=== PATIENT | male | born 1990 | race Caucasian/White ===

== ENCOUNTER → 2021-05-06 09:18 | Outpatient (BNVA) | payer BC, SELFPAY | PROVIDERS: PCP Nurse Practitioner Family; Visit Provider Physician Assistant ==

== ENCOUNTER 2021-05-21 07:51 | Outpatient (REF) | payer BC, SELFPAY ==
[2021-05-21 11:16] LABS: MANUAL DIFF FLAG NO
[2021-05-21 11:39] LABS: Basophils Percent Auto 0.3 % (0-2); Eosinophils Absolute Auto 0.5 X10*3/uL (0.0-0.4); Eosinophils Percent Auto 8.6 % (0-4); Hematocrit 45.8 % (42-52); Hemoglobin 15.8 g/dl (14.0-18.0); Imm Gran Abs Auto 0.01 X10*3/uL (0.00-0.03); Imm Gran Pct Auto 0.2 % (0.0-0.4); Lymphocytes Absolute Auto 2.4 X10*3/uL (1.2-4.9); Lymphocytes Percent Auto 39.8 % (20-40); Mean Corpuscular HGB Conc 34.5 g/dl (31.0-36.0); Mean Corpuscular Hemoglobin 31.5 pg (27.0-33.0); Mean Corpuscular Volume 91.4 fL (80-98); Mean Platelet Volume 8.9 fL (9.4-12.4); Monocytes Absolute Auto 0.6 X10*3/uL (0.1-1.2); Monocytes Percent Auto 9.5 % (2-11); Neutrophils Absolute Auto 2.5 X10*3/uL (2.0-8.3); Neutrophils Percent Auto 41.6 % (45-73); Platelet Count 299 X10*3/uL (160-400); Red Blood Count 5.01 X10*6/uL (4.60-5.80); White Blood Count 6.1 X10*3/uL (4.8-10.8)
[2021-05-21 11:53] LABS: Alanine Aminotransferase 20 U/L (0-40); Albumin Level 4.7 g/dL (3.5-5.0); Alkaline Phosphatase 70 U/L (39-117); Anion Gap 13 (12-20); Aspartate Amino Transferase 20 U/L (5-37); Blood Urea Nitrogen 17 mg/dL (9-16); Calcium 9.5 mg/dL (8.4-10.2); Carbon Dioxide 26 mmol/L (22-29); Chloride 103 mmol/L (96-108); Estimated Glomerular Filt Rate > 60; Glucose Random 73 mg/dL (60-115); Potassium 3.9 mmol/L (3.3-5.1); Sodium 138 mmol/L (135-145); Total Protein 7.5 g/dL (6.5-8.0)
== END 2021-05-21 07:52 | disposition home or self-care (01) ==
LOC: HO.HMGCLDS 07:51
PROVIDERS: PCP Nurse Practitioner Family; Visit Provider Physician Assistant
DX: R10.11 Right upper quadrant pain (principal); R74.01 Elevation of levels of liver transaminase levels
CPT/HCPCS: 36415; 80053; 85025

== ENCOUNTER 2021-06-04 07:28 | Day surgery (SDC) | payer BC, SELFPAY ==
[2021-05-28 13:24] VITALS: BMI 27.8
--- NOTE | 2021-06-03 10:09 | P.CONAN_ITS ---
Documented by User: Nathalie Auguste 06/03/21 10:10 HPI - Anesthesia Eval Consult details Narrative: 31yo M for Upper Endoscopy PMFSH Active Problems Active Problems: All Active Problems (Updated 05/28/21 @ 13:33 by Vicky Cintron) Acid reflux (Acute) Esophageal stricture (Acute) Past Medical History Medical History (Updated 05/28/21 @ 13:33 by Vicky Cintron) COVID-19 vaccine administered Esophageal stricture Foot fracture, right GERD (gastroesophageal reflux disease) History of snoring Hx of migraine headaches Minimal depression Family History Family History Maternal Grandfather Throat cancer Diabetes Paternal Grandmother Hypertension Surgical History Surgical History (Updated 05/28/21 @ 13:32 by Vicky Cintron) History of esophagogastroduodenoscopy (EGD) Hx of wisdom tooth extraction Social History Social History (Updated 05/06/21 @ 09:40 by Grace Cervantes PA-C) Household Members: Spouse and Children Household Members Other:: , 1 child- Are you a primary customer care voice consultant to a significant other at home: No Do you presently have visiting nurse or other home services: No Alcohol intake: current Alcohol intake frequency: does not drink Patient Tobacco Use Status: Never used Tobacco Use of substances other than those prescribed or required for medical reasons: No Have you been hit, kicked, punched, or otherwise hurt by someone within the past year? 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 Allergy/AdvReac Type Severity Reaction Status Date / Time No Known Allergies Allergy Verified 10/01/20 14:04 Home Medications Medication Instructions Recorded Confirmed Last Taken Type loratadine 10 mg PO DAILY PRN 05/28/21 05/28/21 Unknown History Exam Exam Date and Time: June 03, 2021 1009 Height,Weight and Vital Signs: Height 6 ft Weight 92.986 kg Pertinent Lab Results Pertinent Lab Results: Laboratory Tests 05/21/21 05/21/21 07:56 07:56 WBC 6.1 Hgb 15.8 Hct 45.8 Plt Count 299 Sodium 138 Potassium 3.9 Chloride 103 Carbon Dioxide 26 BUN 17 H Creatinine 0.93 Assessment and Plan Assessment Anesthesia Assessment: Chart Reviewed Documented by User: Marylou Oliver 06/04/21 07:56 [facility] Past Medical History Medical History (Updated 05/28/21 @ 13:33 by Vicky Cintron) COVID-19 vaccine administered Esophageal stricture Foot fracture, right GERD (gastroesophageal reflux disease) History of snoring Hx of migraine headaches Minimal depression Family History Family History Maternal Grandfather Throat cancer Diabetes Paternal Grandmother Hypertension Surgical History Surgical History (Updated 05/28/21 @ 13:32 by Vicky Cintron) History of esophagogastroduodenoscopy (EGD) Hx of wisdom tooth extraction Social History Social History (Updated 05/06/21 @ 09:40 by Grace Cervantes PA-C) Household Members: Spouse and Children Household Members Other:: , 1 child- Are you a primary customer care voice consultant to a significant other at home: No Do you presently have visiting nurse or other home services: No Alcohol intake: current Alcohol intake frequency: does not drink Patient Tobacco Use Status: Never used Tobacco Use of substances other than those prescribed or required for medical reasons: No Have you been hit, kicked, punched, or otherwise hurt by someone within the past year? 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 Allergy/AdvReac Type Severity Reaction Status Date / Time No Known Allergies Allergy Verified 10/01/20 14:04 Home Medications Medication Instructions Recorded Confirmed Last Taken Type loratadine 10 mg PO DAILY PRN 05/28/21 05/28/21 Unknown History Exam Airway Mallampati Class: II TM Dist: >3cm Neck ROM: Full Heart: rrr Lungs: cta Assessment and Plan Assessment Anesthesia Assessment: Anesthesia Plan Discussed Final Anesthetic Review NPO: Yes ASA Class: II Final Preanesthetic Review: No Changes in Pt Med Stat and Consent Obtaine d/Reviewed Patient Risk: Intermediate Procedure Risk: Intermediate Anesthetic Plan Anesthetic Plan: MAC: Disposition: Standard PACU
--- NOTE | 2021-06-04 07:38 | P.HPSUR_ITS ---
Pre-Procedural Eval Section A Date of Service: 06/04/21 Section B Chief Complaint: esophageal stricture Relevant Social History: None Present Medications: see Short Stay Collaborative assessment Medical History: Significant History (Esophageal stricture Foot fracture, right GERD (gastroesophageal reflux disease) History of snoring Hx of migraine headaches Minimal depression) History of Previous Operations: Relevant previous surgery/procedure and date(s) Allergies: Allergies Allergy/AdvReac Type Severity Reaction Status Date / Time No Known Allergies Allergy Verified 10/01/20 14:04 Review of Systems Sugical H&P ROS: Negative: Constitution, Cardiovascular, Respiratory, Neurological, Psychiatric, Hem-Onc, Allergic/Immunologic, Gastrointestinal, Genitourinary, Musculoskeletal, Integumentary, Endocrine and Eyes/Ears/Nose/Throat Exam Surgical H&P Exam: Normal: HEENT, Normal: Heart, Normal: Lungs, Normal: Ext remities, Normal: Abdomen, Normal: Skin and Normal: Neurological Plan Diagnosis/Plan: Unchanged I have reviewed the history and physical and performed a pertinent physical examination on my patient. No changes have occurred unless specified.
[2021-06-04 07:49] VITALS: BP 126/84; PULSE 71; RESP 18; TEMP 36.7; O2SAT 98
[2021-06-04] MEDS: Lactated Ringers 1,000 ML 100 ML IVCONT (08:08)
--- NOTE | 2021-06-04 08:09 | PC.NURSE ---
PATIENT HAD VASO REACTION TO IV START. BP DROPPED TO 74/41, HR 50. PATIENT LAID FLAT AND COOL CLOTH GIVEN. IVF'S WIDE OPEN. BP UP TO 87/48, HR 50 AT 0808 BP UP TO 92/59, HR 52 AT 0809 BP UP TO 108/70, HR 58 AT 0811. BP UP TO 110/78, HR 63 AT 0814. ANESTHESIOLOGIST NOTIFIED AND EVALUALTED PATIENT. PATIENT STATES FEELING BETTER AT THIS TIME. VSS.
--- NOTE | 2021-06-04 08:56 | PM.OP ---
Brief Operative Note Date of Service: 06/04/21 Pre-op diagnosis: dysphagia Post-op diagnosis: same Procedure: see op note Surgeon: Nadia Murray MD Anesthesia: MAC Was an Basket Hand Braider used for this Procedure?: No Estimated blood loss (mL): 0 Condition: stable Disposition: PACU
--- NOTE | 2021-06-04 08:57 | W.PM.OPN ---
Operative Note Operative Note Date of Service: 06/04/21 Narrative: Procedure Description: EGD FLEXIBLE TRANSORAL UPPER GASTROINTESTINAL ENDOSCOPY UPPER ENDOSCOPY Consent: Indications for the procedure and potential complications of bleeding, perforation, reaction to medications and missed diagnosis were discussed with the patient and informed consent was obtained. Instrument: Olympus GIF H 190 J mid size upper endoscope Monitoring: Vital signs and clinical assessment, continuous EKG monitoring, Pulse oximetry, Carbon Dioxide monitoring and blood pressure monitoring were done throughout the procedure. Procedure: The patient was placed in the left lateral decubitis position and pre-procedure medications were administered and a bite block was placed. The endoscope was inserted into the mouth and advanced under direct vision to the third part of duodenum. A careful inspection was made as the upper endoscope was withdrawn including a retroflexed examination of the proximal stomach; Findings and interventions are described below. Findings: Larynx:normal Esophagus: GE junction at 40 cm, diaphragm hiatus at 40 cm, concentric ringing of esophagus with ridges suggestive of EoE, 18 mm then 19 mm balloon dilation at LES and UES with small tears noted at LES with heme. Bx taken from distal and then proximal esophagus in different jars Stomach: Patchy gastric erythema. Biopsies were obtained. Grade 2 flap valve on retroflexed examination of the cardia. Duodenum: Normal bulb and descending duodenum, bx taken Intervention: Biopsies as noted above, balloon dilation Impression/Findings: esophageal stricture, possible EoE PLAN: cont with PPI If any discomfort pos top can send home with magic mouthwash, will give a dose in post op before going home
[2021-06-04 09:03] VITALS: BP 99/66; PULSE 63; RESP 12; TEMP 36.1; O2SAT 96
[2021-06-04 09:18] VITALS: BP 108/79; PULSE 63; RESP 17; TEMP 36.1; O2SAT 99
== END 2021-06-04 09:40 | disposition home or self-care (01) ==
PROVIDERS: PCP Nurse Practitioner Family; Visit Provider Internal Medicine Gastroenterology
PROC: 0DJ08ZZ Inspection of Upper Intestinal Tract, Via Natural or Artificial Opening Endoscopic (ICD-10-PCS; CPT 43235; principal; 2021-06-04 08:30)
DX: K22.2 Esophageal obstruction (principal); K29.50 Unspecified chronic gastritis without bleeding; K44.9 Diaphragmatic hernia without obstruction or gangrene; K21.9 Gastro-esophageal reflux disease without esophagitis; R06.83 Snoring; Z79.899 Other long term (current) drug therapy
CPT/HCPCS: 43249; 43239; 88305; 88342; C1726

== ENCOUNTER → 2021-06-16 09:03 | Outpatient (BNVA) | payer BC, SELFPAY | PROVIDERS: PCP Nurse Practitioner Family; Visit Provider Physician Assistant ==

== ENCOUNTER 2021-09-03 08:55 | Day surgery (SDC) | payer BC, SELFPAY ==
--- NOTE | 2021-09-02 09:13 | P.CONAN_ITS ---
Documented by User: Nathalie Auguste NP 09/02/21 09:15 HPI - Anesthesia Eval Consult details Narrative: 31yo M for Upper Endoscopy s/p EGD 05/2021 with MAC PMF Active Problems Active Problems: All Active Problems (Updated 06/16/21 @ 10:10 by Grace Cervantes PA-C) Acid reflux (Acute) Esophagitis (Acute) Esophageal stricture (Acute) Past Medical History Medical History (Updated 06/16/21 @ 10:10 by Grace Cervantes PA-C) COVID-19 vaccine administered Esophageal stricture Foot fracture, right GERD (gastroesophageal reflux disease) History of snoring Hx of migraine headaches Minimal depression Family History Family History Maternal Grandfather Throat cancer Diabetes Paternal Grandmother Hypertension Surgical History Surgical History (Updated 08/29/21 @ 11:51 by Rasheeda Gaytan RN) History of esophagogastroduodenoscopy (EGD) Hx of wisdom tooth extraction Social History Social History Household Members: Spouse and Children Household Members Other:: , 1 child- Are you a primary family day care worker to a significant other at home: No Do you presently have visiting nurse or other home services: No Alcohol intake: current Alcohol intake frequency: does not drink Patient Tobacco Use Status: Never used Tobacco Use of substances other than those prescribed or required for medical reasons: No Are you DNR?: No Advance Directives: No Advance Directives Information Provided: No Advance Directives Date on File: 06/04/21 Current occupational status: employed 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 05/21/21 05/21/21 ? 07:56 07:56 WBC ?6.1 ? Hgb ?15.8 ? Hct ?45.8 ? Plt Count ?299 ? Sodium ? ?138 Potassium ? ?3.9 Chloride ? ?103 Carbon Dioxide ? ?26 BUN ? ?17 H Creatinine ? ?0.93 Assessment and Plan Assessment Anesthesia Assessment: Chart Reviewed Documented by User: Hair Ceja MD 09/03/21 09:27 [facility] Past Medical History Medical History (Updated 06/16/21 @ 10:10 by Grace Cervantes PA-C) COVID-19 vaccine administered Esophageal stricture Foot fracture, right GERD (gastroesophageal reflux disease) History of snoring Hx of migraine headaches Minimal depression Family History Family History Maternal Grandfather Throat cancer Diabetes Paternal Grandmother Hypertension Surgical History Surgical History (Updated 08/29/21 @ 11:51 by Rasheeda Gaytan RN) History of esophagogastroduodenoscopy (EGD) Hx of wisdom tooth extraction Social History Social History Household Members: Spouse and Children Household Members Other:: , 1 child- Are you a primary family day care worker to a significant other at home: No Do you presently have visiting nurse or other home services: No Alcohol intake: current Alcohol intake frequency: does not drink Patient Tobacco Use Status: Never used Tobacco Use of substances other than those prescribed or required for medical reasons: No Are you DNR?: No Advance Directives: No Advance Directives Information Provided: No Advance Directives Date on File: 06/04/21 Current occupational status: employed 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
[2021-09-03 09:02] VITALS: BMI 28.0
[2021-09-03] MEDS: Lactated Ringers 1,000 ML 100 ML IVCONT (09:15)
--- NOTE | 2021-09-03 09:19 | PC.NURSE ---
IV inserted, vaso vagal response. BP 66/34, HR 50. Patient laid flat, cool washcloth applied to forehead, knees raised, mask pulled down, fluids opened wide. Anesthesia aware.
--- NOTE | 2021-09-03 09:29 | MHC.SHP ---
Pre-Procedural Eval Section A Date of Service: 09/03/21 Section B Chief Complaint: esophagitis Relevant Family History (Specify if Yes): No Relevant Social History: None Present Medications: see Short Stay Collaborative assessment Medical History: Significant History (Esophageal stricture Foot fracture, right GERD (gastroesophageal reflux disease) History of snoring Hx of migraine headaches Minimal depression) History of Previous Operations: Relevant previous surgery/procedure and date(s) (wisdom tooth, EGD) Allergies: Allergies Allergy/AdvReac Type Severity Reaction Status Date / Time horse dander Allergy Itching Verified 09/03/21 09:01 Review of Systems Sugical H&P ROS: Negative: Constitution, Cardiovascular, Respiratory, Neurological, Psychiatric, Hem-Onc, Allergic/Immunologic, Gastrointestinal, Genitourinary, Musculoskeletal, Integumentary, Endocrine and Eyes/Ears/Nose/Throat Exam Surgical H&P Exam: Normal: HEENT, Normal: Heart, Normal: Lungs, Normal: Extremities, Normal: Abdomen, Normal: Skin and Normal: Neurological Plan Diagnosis/Plan: Unchanged I have reviewed the history and physical and performed a pertinent physical examination on my patient. No changes have occurred unless specified.
--- NOTE | 2021-09-03 09:30 | PM.OP ---
Brief Operative Note Date of Service: 09/03/21 Pre-op diagnosis: hx of EoE Post-op diagnosis: same Procedure: see op note Surgeon: Nadia Murrya MD Anesthesia: MAC Was an Sealant Mixer used for this Procedure?: No Estimated blood loss (mL): 0 Condition: stable Disposition: PACU
--- NOTE | 2021-09-03 09:30 | W.PM.OPN ---
Operative Note Operative Note Date of Service: 09/03/21 Narrative: Procedure Description: EGD FLEXIBLE TRANSORAL UPPER GASTROINTESTINAL ENDOSCOPY UPPER ENDOSCOPY Consent: Indications for the procedure and potential complications of bleeding, perforation, reaction to medications and missed diagnosis were discussed with the patient and informed consent was obtained. Instrument: Olympus GIF H 190 J mid size upper endoscope Monitoring: Vital signs and clinical assessment, continuous EKG monitoring, Pulse oximetry, Carbon Dioxide monitoring and blood pressure monitoring were done throughout the procedure. Procedure: The patient was placed in the left lateral decubitis position and pre-procedure medications were administered and a bite block was placed. The endoscope was inserted into the mouth and advanced under direct vision to the third part of duodenum. A careful inspection was made as the upper endoscope was withdrawn including a retroflexed examination of the proximal stomach; Findings and interventions are described below. Findings: Larynx:normal Esophagus: GE junction at 40 cm, diaphragm hiatus at 40 cm, ringed appearance to esophagus distally at GEJ, few micro abscesses noted, bx taken from distal, mid and proximal esophagus in separate jars. Stomach: Normal mucosa. Grade 2 flap valve on retroflexed examination of the cardia. Duodenum: Normal bulb and descending duodenum, Intervention: Biopsies as noted above Impression/Findings: eosinophilic esophagitis, improved appearance from before and clinically in remission PLAN: cont with BID PPI for another 3 months then cut down to 40 mg once daily thereafter.
[2021-09-03 09:46] VITALS: BP 131/87; PULSE 67; RESP 12; TEMP 36.7; O2SAT 99
[2021-09-03 10:02] VITALS: BP 125/87; PULSE 65; RESP 18; TEMP 36.7; O2SAT 98
== END 2021-09-03 10:47 | disposition home or self-care (01) ==
PROVIDERS: PCP Nurse Practitioner Family; Visit Provider Internal Medicine Gastroenterology
PROC: 0DJ08ZZ Inspection of Upper Intestinal Tract, Via Natural or Artificial Opening Endoscopic (ICD-10-PCS; CPT 43235; principal; 2021-09-03 10:20)
DX: K20.90 Esophagitis, unspecified without bleeding (principal); K22.2 Esophageal obstruction; K21.9 Gastro-esophageal reflux disease without esophagitis; K29.50 Unspecified chronic gastritis without bleeding; K44.9 Diaphragmatic hernia without obstruction or gangrene; Z79.899 Other long term (current) drug therapy
CPT/HCPCS: 43239; 88305

== ENCOUNTER 2021-11-29 09:08 | Outpatient (REF) | payer BC, SELFPAY ==
[2021-11-29 11:43] LABS: Binax Internal Control QC Valid; Binax Lot number: 9864; Binax Now Covid-19 Ag Negative (Negative)
== END 2021-11-29 09:09 | disposition home or self-care (01) ==
LOC: HO.LAB 09:08
PROVIDERS: Visit Provider Internal Medicine
DX: Z20.822 Contact with and (suspected) exposure to COVID-19 (principal)
CPT/HCPCS: 36415; C9803

== ENCOUNTER → 2021-12-23 09:23 | Outpatient (BNVA) | payer BC, SELFPAY | PROVIDERS: PCP Nurse Practitioner Family; Visit Provider Physician Assistant ==

== ENCOUNTER 2022-03-24 07:26 | Day surgery (SDC) | payer BC, SELFPAY ==
[2022-03-19 11:52] VITALS: BMI 29.0
[2022-03-24 07:41] VITALS: BP 120/80; PULSE 67; RESP 18; TEMP 36.3; O2SAT 97
--- NOTE | 2022-03-24 08:10 | HO.ANESPROP2 ---
HPI - Anesthesia Eval Consult details Narrative: 32 yo male patient for EGD PMFSH Active Problems Active Problems: All Active Problems (Updated 06/16/21 @ 10:10 by Grace Cervantes PA-C) Acid reflux (Acute) Esophagitis (Acute) Esophageal stricture (Acute) Past Medical History Medical History COVID-19 vaccine administered Esophageal stricture Foot fracture, right GERD (gastroesophageal reflux disease) History of snoring Hx of migraine headaches Minimal depression Family History Family History Maternal Grandfather Throat cancer Diabetes Paternal Grandmother Hypertension Family history of problems with anesthesia: No Surgical History Surgical History History of esophagogastroduodenoscopy (EGD) Hx of wisdom tooth extraction History of Problems with Anesthesia: No Social History Social History Household Members: Spouse and Children Household Members Other:: , 1 child- Are you a primary doggy daycare activities director to a significant other at home: No Do you presently have visiting nurse or other home services: No Alcohol intake: current Alcohol intake frequency: does not drink Patient Tobacco Use Status: Never used Tobacco Use of substances other than those prescribed or required for medical reasons: No Are you DNR?: No Advance Directives: Yes Advance Directives on File: Yes Advance Directives Date on File: 06/04/21 Current occupational status: employed 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 Allergies Allergy/AdvReac Type Severity Reaction Status Date / Time horse dander Allergy Itching Verified 12/23/21 09:25 Home Medications Medication Instructions Recorded Confirmed Last Taken Type loratadine 10 mg tablet 10 mg PO DAILY PRN 05/28/21 12/23/21 Unknown History Exam Exam Date and Time: March 24, 2022 0810 Height,Weight and Vital Signs: Height 5 ft 11 in Weight 94.347 kg Last Vital Signs Temp 97.4 F 03/24/22 07:41 Pulse 67 03/24/22 07:41 Resp 18 03/24/22 07:41 BP 120/80 03/24/22 07:41 Pulse Ox 97 03/24/22 07:41 Airway Mallampati Class: II TM Dist: >3cm Neck ROM: Full Loose/Missing/Broken Teeth: Yes (Missing wisdom teeth) Heart: RRR Lungs: CTAB Assessment and Plan Assessment Anesthesia Assessment: Anesthesia Plan Discussed and Chart Reviewed Final Anesthetic Review Family History of Problems with Anesthesia: No History of Problems with Anesthesia: No NPO: Yes ASA Class: II Final Preanesthetic Review: No Changes in Pt Med Stat, Meds/Allgs Chart Reviewed, Consent Obtained/Reviewed and Anes Risks/Benef Reviewed Patient Risk: Low Procedure Risk: Low Assessment/Block/Sedation in SS: Assess/Block/Sedation-SS Anesthetic Plan Anesthetic Plan: MAC: Disposition: Standard PACU
--- NOTE | 2022-03-24 08:23 | MHC.SHP ---
Pre-Procedural Eval Section A Date of Service: 03/24/22 Section B Chief Complaint: esophagitis Relevant Family History (Specify if Yes): No Relevant Social History: None Present Medications: see Short Stay Collaborative assessment Medical History: Significant History (Esophageal stricture Foot fracture, right GERD (gastroesophageal reflux disease) History of snoring Hx of migraine headaches Minimal depression) History of Previous Operations: Relevant previous surgery/procedure and date(s) (History of esophagogastroduodenoscopy (EGD) Hx of wisdom tooth extraction) Allergies: Allergies Allergy/AdvReac Type Severity Reaction Status Date / Time horse dander Allergy Itching Verified 12/23/21 09:25 Review of Systems Sugical H&P ROS: Negative: Constitution, Cardiovascular, Respiratory, Neurological, Psychiatric, Hem-Onc, Allergic/Immunologic, Gastrointestinal, Genitourinary, Musculoskeletal, Integumentary, Endocrine and Eyes/Ears/Nose/Throat Exam Surgical H&P Exam: Normal: HEENT, Normal: Heart, Normal: Lungs, Normal: Extremities, Normal: Abdomen, Normal: Skin and Normal: Neurological Plan Diagnosis/Plan: Unchanged I have reviewed the history and physical and performed a pertinent physical examination on my patient. No changes have occurred unless specified.
--- NOTE | 2022-03-24 08:24 | P.BOP_ITS ---
Brief Operative Note Date of Service: 03/24/22 Pre-op diagnosis: esophagitis Post-op diagnosis: same Procedure: see op note Surgeon: Nadia Murray MD Anesthesia: MAC Was an Computed Tomography Technician used for this Procedure?: No Estimated blood loss (mL): 0 Condition: stable Disposition: PACU
--- NOTE | 2022-03-24 08:24 | W.PM.OPN ---
Operative Note Operative Note Date of Service: 03/24/22 Narrative: Procedure Description: EGD Indication: hx of esophagitis Anesthesia: MAC FLEXIBLE TRANSORAL UPPER GASTROINTESTINAL ENDOSCOPY UPPER ENDOSCOPY Consent: Indications for the procedure and potential complications of bleeding, perforation, reaction to medications and missed diagnosis were discussed with the patient and informed consent was obtained. Instrument: Olympus GIF H 190 J mid size upper endoscope Monitoring: Vital signs and clinical assessment, continuous EKG monitoring, Pulse oximetry, Carbon Dioxide monitoring and blood pressure monitoring were done throughout the procedure. Procedure: The patient was placed in the left lateral decubitis position and pre-procedure medications were administered and a bite block was placed. The endoscope was inserted into the mouth and advanced under direct vision to the third part of duodenum. A careful inspection was made as the upper endoscope was withdrawn including a retroflexed examination of the proximal stomach; Findings and interventions are described below. Findings: Larynx:normal Esophagus: GE junction at 40? cm, diaphragm hiatus at 40 cm, mild ringed appearance to esophagus distally at GEJ, few scattered white spots noted, bx taken from GEJ, distal, and proximal esophagus in separate jars. Stomach: Normal mucosa. Grade 2 flap valve on retroflexed examination of the cardia. Duodenum: Normal bulb and descending duodenum, Intervention: Biopsies as noted above Impression/Findings: Mild eosinophilic esophagitis by endoscopic appearance, clinically he is remission with no symptoms PLAN: await bx, might cut down PPI if not already based on results
[2022-03-24] MEDS: Lactated Ringers 1,000 ML 100 ML IVCONT (08:31)
[2022-03-24 08:53] VITALS: BP 96/59; PULSE 67; RESP 20; TEMP 36.1; O2SAT 96
[2022-03-24 09:10] VITALS: PULSE 68; RESP 16; TEMP 36.3; O2SAT 96
[2022-03-24 09:25] VITALS: BP 99/72; PULSE 63; RESP 16; TEMP 36.4; O2SAT 100
== END 2022-03-24 10:07 ==
LOC: HO.SSS 07:26
PROVIDERS: PCP Nurse Practitioner Family; Visit Provider Internal Medicine Gastroenterology
PROC: 0DJ08ZZ Inspection of Upper Intestinal Tract, Via Natural or Artificial Opening Endoscopic (ICD-10-PCS; CPT 43235; principal; 2022-03-24 08:30)
DX: K20.80 Other esophagitis without bleeding (principal); K44.9 Diaphragmatic hernia without obstruction or gangrene; Z79.899 Other long term (current) drug therapy; K21.9 Gastro-esophageal reflux disease without esophagitis; R06.83 Snoring
CPT/HCPCS: 43239; 88305

== ENCOUNTER 2022-04-21 07:34 | Outpatient (REF) | payer BC, SELFPAY | END 2022-04-21 07:35 | disposition home or self-care (01) | LOC: HO.HMGCLDS 07:34 | PROVIDERS: Visit Provider Internal Medicine Gastroenterology | DX: K20.90 Esophagitis, unspecified without bleeding (principal) | CPT/HCPCS: 36415; 86003 ==

== ENCOUNTER 2023-08-03 08:36 | Outpatient (AMB) | payer BC, SELFPAY ==
[2023-08-03 08:53] VITALS: BP 118/86; PULSE 80; O2SAT 97; BMI 31.2
--- NOTE | 2023-08-03 08:53 | A.OFFPC_ITS ---
Vital Signs 08/03/23 08:53 Height 6 ft Weight 230 lb 2 oz BMI 31.2 BP 118/86 Blood Pressure Location Rt brachial Position Sitting Pulse 80 Pulse Source Pulse Oximeter Pulse Oximetry (%) 97 Oxygen Delivery Method Room Air Intake Visit Reasons: Physical Exam Intake Note: pt is here for a PE Allergies horse dander Allergy (Verified 08/03/23 09:06) Itching Medication List - Last Reconciled 08/03/23 by SANCHO Davis loratadine 10 mg PO DAILY PRN multivitamin (Daily Multi-Vitamin tablet) 1 tab PO DAILY omeprazole 40 mg (2 x 20 mg) PO QAM Tobacco use date assessed: 08/03/23 Dental Screening Dental Screen Date: 08/03/23 Did you have a dental visit in the last 12 months?: Yes Did you have a dental problem in the last 6 months where you did not have access to dental care?: No Was dental information given to patient?: Patient has dentist HPI Physical Exam HPI Details Pt is here for a PE. Will order labs. Pt has multiple skin lesions to his abdomen and upper back. Will refer to derm. Hx of sleep apnea, will refer for sleep study. [facility] Medical History COVID-19 vaccine administered Esophageal stricture Foot fracture, right GERD (gastroesophageal reflux disease) History of snoring Hx of migraine headaches Minimal depression Surgical History History of esophagogastroduodenoscopy (EGD) Hx of wisdom tooth extraction Family History Maternal Grandfather Throat cancer Diabetes Paternal Grandmother Hypertension Father Mental health disorder Social History Household Members: Spouse and Children Household Members Other:: , 1 child- Housing: House Are you a primary critical care clinical nurse specialist to a significant other at home: No Do you presently have visiting nurse or other home services: No Alcohol intake: current Alcohol intake frequency: does not drink Patient Tobacco Use Status: Never used Tobacco e-Cigarette/Vaping Use: Never Used Advance Directives Date on File: 06/04/21 Current occupational status: employed 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 How often do you have a drink containing alcohol?: Monthly or less 2. How many drinks containing alcohol do you have on a typical day when you are drinking?: 1 or 2 3. How often do you have six or more drinks on one occasion?: Never Total Score: 1 Review of Systems Const Denies chills and Denies fever(s) Eyes Denies blurry vision ENT Denies vertigo, Denies dizziness and Denies sore throat Card Denies chest pain at rest, Denies chest pain with activity, Denies diaphoresis, Denies dyspnea and Denies dyspnea on exertion Resp Denies cough, Denies dyspnea, Denies dyspnea on exertion and Denies wheezing GI Denies abdominal pain, Denies melena, Denies hematochezia, Denies constipation, Denies diarrhea and Denies loose stools Denies hematuria Musc Denies numbness and Denies tingling Skin/Breast Denies lesions Neuro Denies vertigo, Denies dizziness, Denies numbness and Denies tingling Psych Denies anxiety, Denies depression, Denies homicidal ideation, Denies suicidal ideation and Denies other (substance abuse) Aller/Immun Denies wheezing Physical exam (Primary Care) Vital Signs: Last Vital Signs Pulse 80 08/03/23 08:53 BP 118/86 08/03/23 08:53 Pulse Ox 97 08/03/23 08:53 Oxygen Delivery Method Room Air 08/03/23 08:53 BMI result Body Mass Index 31.2 Tobacco/Smoking Status: Tobacco use Status Tobacco use date assessed 08/03/23 08/03/23 08:58 Patient Tobacco Use Status Never used Tobacco 08/03/23 08:58 e-Cigarette/Vaping Use Never Used 08/03/23 08:58 Const General: cooperative Nutritional Appearance: obese Orientation/consciousness: patient oriented x3 HENMT Head: Yes normal to inspection, Yes normocephalic and Yes atraumatic Ears: TM's normal bilaterally Eyes General: appearance normal, both eyes and all related structures Alignment and Position: alignment normal and position normal Neck Neck: Yes normal visual inspection and Yes no lymphadenopathy Thyroid: Thyroid normal Resp Effort & Inspection: normal respiratory effort Auscultation: clear to auscultation bilaterally Cardio Rate: regular rate Rhythm: regular rhythm Heart sounds: S1 normal heart sound present, S2 normal heart sound present and no murmurs GI Palpation (GI): Soft to palpation and nontender Auscultation: normal bowel sounds Male General Exam: Yes normal external exam Penis: normal penis Scrotum: scrotum normal, testes descended bilaterally and no inguinal hernias Testes: no testicular mass Skin Other: right abdomen with small faintly discolored lesion, irregular borders with center dark freckle, upper back with variation of darker colored pigmentation, irregular borders Rashes: no rashes Neuro General: patient oriented x3, moves all extremities, no focal motor deficits and deep tendon reflexes 2+ bilaterally Romberg Test: Negative Psych Appearance: grossly normal Mental Status: mental status grossly normal Speech and movement: Normal speech and movement present Affect: normal affect Attitude: cooperative Thought process: Normal thought process present Thought content: Normal thought content present Insight: Good insight present (Psych) Judgement: Good judgement present (Psych) Assessment and Plan Assessment & Plan (1) Physical exam: Code(s): Z00.00 - Encounter for general adult medical examination without abnormal findings Plan: Labs ordered (2) Sleep apnea: Code(s): G47.30 - Sleep apnea, unspecified Plan: Referred for sleep study (3) Skin lesion of back: Code(s): L98.9 - Disorder of the skin and subcutaneous tissue, unspecified Plan: Referred to derm Plan The patient agreed to the use of a medical staff assistant for this encounter. Scribed for SANCHO Pimentel by Nidia Anna medical staff assistant, on 08/03/2023 at 09:05 EST. Orders: Orders Comprehensive [place]. Panel Fast Today Z00.00 - Encounter for general adult medical examination without abnormal findings Lipid Panel Today Z00.00 - Encounter for general adult medical examination without abnormal findings TSH reflex Free T4 Today Z00.00 - Encounter for general adult medical examination without abnormal findings Complete Blood Count Auto Diff Today Z00.00 - Encounter for general adult medical examination without abnormal findings UA CC w/rflx Micro + Cult Today Z00.00 - Encounter for general adult medical examination without abnormal findings Referrals Sleep Medicine Referral G47.30 - Sleep apnea, unspecified Dermatology Referral L98.9 - Disorder of the skin and subcutaneous tissue, unspecified Coding Level of Care Code Est Pt Prev Care [id number]([id number]) Diagnoses Physical exam Z00.00 Sleep apnea G47.30 Skin lesion of back L98.9
== END 2023-08-03 10:06 | disposition home or self-care (01) ==
PROVIDERS: Visit Provider Nurse Practitioner Family
DX: Z00.00 Encounter for general adult medical examination without abnormal findings (principal); G47.30 Sleep apnea, unspecified; L98.9 Disorder of the skin and subcutaneous tissue, unspecified
CPT/HCPCS: 99395

== ENCOUNTER 2023-09-28 09:58 | Outpatient (AMB) | payer BC, SELFPAY ==
--- NOTE | 2023-09-28 10:01 | MHC.OFFVIS ---
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 Pt reports loud snoring, witnssed apnea spells, and gasping arousals. His snoring has been progressed over the last 3 years. He moved from [place], and he is not sure the weather or allergy caused more snoring. He gained about 35-40 lb over the last 3 years. He tried nasal strip, mouth guard, pillow to elevate his head, but nothing really helpful to reduce snoring. Has family hx of sleep apnea. Sleep questionnaire: Have you ever been diagnosed with a sleep disorder? No. Have you ever had a sleep study in the past? No. Have you ever been treated for a sleep disorder? No. Do you take medications for a sleep disorder? No. Do you snore? Yes. Do you wake up gasping at night? Yes. Do you have episodes of apneas? Yes. If yes, are they witnessed? Yes, by his . Do you have episodes of nocturnal chest pain or dyspnea? No. Do you have difficulty initiating sleep? No. Do you have difficulty maintaining sleep? No. Do you wake up tired? Yes, sometimes. Do you have headaches upon awakening? No. Do you wake up with dry mouth or throat? Occasionally. Do you have GERD? Yes. Do you have nocturia? Not really. Do you have nocturnal leg cramps? No. Do you have symptoms of restless legs? No. Do you act out your dreams? No. Sleep hygiene questionnaire: What is your usual sleep routine? Usual bedtime is at 9-10 pm; Usual wake up time is at 6 :45-7 am. Do you take naps? No. Is your sleep environment cool, dark, and quiet? Yes. Do you exercise? Walking dog. And walking. Do you take caffeine or other stimulants? No. Do you use electronics in bed? No. What is your work schedule? 12 to 8 pm, 8-5 pm. Hypersomnolence questionnaire: Do you have daytime tiredness or fatigue? Yes. Do you easily fall asleep when inactive? No. Have you ever had episodes of sudden weakness? No. Have you ever had episodes of sudden weakness associated with strong emotions? No. PFSH Medical History COVID-19 vaccine administered Esophageal stricture Foot fracture, right GERD (gastroesophageal reflux disease) History of snoring Hx of migraine headaches Minimal depression Surgical History History of esophagogastroduodenoscopy (EGD) Hx of wisdom tooth extraction Family History Maternal Grandfather Throat cancer Diabetes Paternal Grandmother Hypertension Father Mental health disorder Social History (Updated 09/28/23 @ 10:05 by Latonya Maharaj [facility]) Household Members: Spouse and Children Household Members Other:: , 1 child- Housing: House Are you a primary adult day care worker to a significant other at home: No Do you presently have visiting nurse or other home services: No Alcohol intake: current Alcohol intake frequency: does not drink Patient Tobacco Use Status: Never used Tobacco e-Cigarette/Vaping Use: Never Used Advance Directives Date on File: 06/04/21 Current occupational status: employed 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 needs: No Hearing needs: No Vision needs: No Review of Systems Const All systems reviewed & are unremarkable except as noted in HPI and below ENT Reports Normal hearing present Neuro Reports Normal hearing present Physical Exam Vital Signs: Last Vital Signs Pulse 80 09/28/23 10:05 BP 108/78 09/28/23 10:05 Pulse Ox 97 09/28/23 10:05 Oxygen Delivery Method Room Air 09/28/23 10:05 BMI result Body Mass Index 31.5 Const General: cooperative Nutritional Appearance: overweight Orientation/consciousness: patient oriented x3 HEENT Throat: Yes other (mallampati grade 2) Resp Effort & Inspection: normal respiratory effort and able to speak in complete sentences Neuro General: patient oriented x3, gait normal, moves all extremities and no focal motor deficits Cranial nerves: Yes Bilaterally intact EOM present, Yes Normal facial strength present, Yes Midline tongue present, Yes Symmetric palate elevation present, Yes Normal hearing present, Yes Ability to bilaterally rotate head present and Yes Ability to bilaterally elevate shoulders present Cognition (Neuro): normal cognition Gait exam (Neuro): Normal gait present Motor exam (neuro): 5/5 motor strength present throughout, Pronator motor function not present and no tremor noted Psych Appearance: grossly normal Mental Status: mental status grossly normal Speech and movement: Normal speech and movement present Affect: normal affect Attitude: cooperative Assessment & Plan Assessment & Plan (1) Daytime sleepiness: Code(s): R40.0 - Somnolence (2) Loud snoring: Code(s): R06.83 - Snoring Plan Pt is advised to undergo home sleep study to assess for sleep apnea. Will f/u with pt after study to discuss results and appropriate treatment options. Advised patient to continue practice good sleep hygiene. Pt to call with any worsening concerns or questions. Orders: Orders RT home sleep study Today G47.30 - Sleep apnea, unspecified, K21.9 - Gastro-esophageal reflux disease without esophagitis, R40.0 - Somnolence Coding Level of Care Code New Pt Level 3 (95367) Diagnoses Daytime sleepiness R40.0 Loud snoring R06.83
[2023-09-28 10:05] VITALS: BP 108/78; PULSE 80; O2SAT 97; BMI 31.5
== END 2023-09-28 10:36 | disposition home or self-care (01) ==
PROVIDERS: PCP Nurse Practitioner Family; Visit Provider Nurse Practitioner Family
DX: R40.0 Somnolence (principal); R06.83 Snoring
CPT/HCPCS: 99203

== ENCOUNTER → 2023-09-28 09:58 | Outpatient (BNVA) | payer BC, SELFPAY | PROVIDERS: PCP Nurse Practitioner Family; Visit Provider Nurse Practitioner Family ==

== ENCOUNTER → 2023-11-10 09:43 | Outpatient (REF) | payer BC, SELFPAY | LOC: HO.SL 09:43 | PROVIDERS: PCP Nurse Practitioner Family; Visit Provider Nurse Practitioner Family | DX: G47.33 Obstructive sleep apnea (adult) (pediatric) (principal); K21.9 Gastro-esophageal reflux disease without esophagitis; R40.0 Somnolence | CPT/HCPCS: 95806 ==

== ENCOUNTER → 2023-11-10 09:52 | Outpatient (BNV) | payer BC, SELFPAY | PROVIDERS: PCP Nurse Practitioner Family; Visit Provider Psychiatry & Neurology Neurology | DX: G47.33 Obstructive sleep apnea (adult) (pediatric) (principal) | CPT/HCPCS: 95806 ==

== ENCOUNTER 2024-01-25 07:38 | Outpatient (AMB) | payer BC, SELFPAY ==
--- NOTE | 2024-01-25 08:06 | A.OFFVIS_ITS ---
Intake Vital Signs 01/25/24 08:15 Height 6 ft Weight 235 lb 8 oz BMI 31.9 BP 115/70 Blood Pressure Location Rt brachial Position Sitting Pulse 75 Pulse Source Pulse Oximeter Pulse Oximetry (%) 97 Oxygen Delivery Method Room Air Intake Visit Reasons: 4 mnts f/u for Sleep Apnea-LVM Intake Note: Patient presents for 4 month f/u for sleep Apnea. Loud snoring, wakes up with headache, wakes up gasping for air Allergies horse dander Allergy (Verified 01/25/24 08:13) Itching general hayfever Allergy (Severe, Uncoded 09/28/23 10:03) sneezing HPI HPI Comments History of Present Illness Details 33 y/o male patient present for follow u p of sleep study. The home sleep study result was significant for a mild degree of sleep apnea. The AHI was 13/hr and oxygen eliseo was 84%. Total snoring episodes was 321, and total duration with snoring was 80%. APAP [id number] ordered in November. However, pt states that he did not get any phone call for CPAP. Pt wants to have evaluation for snoring. He tried nasal strip, mouth guard, pillow to elevate his head, but nothing really helpful to reduce snoring. COUNTS INCLUDE 234 BEDS AT THE [facility] Medical History COVID-19 vaccine administered Esophageal stricture Foot fracture, right GERD (gastroesophageal reflux disease) History of snoring Hx of migraine headaches Minimal depression Surgical History Hx of wisdom tooth extraction History of esophagogastroduodenoscopy (EGD) Family History Maternal Grandfather Throat cancer Diabetes Paternal Grandmother Hypertension Father Mental health disorder Social History Household Members: Spouse and Children Household Members Other:: , 1 child- Housing: House Are you a primary pet caretaker to a significant other at home: No Do you presently have visiting nurse or other home services: No Alcohol intake: current Alcohol intake frequency: does not drink Patient Tobacco Use Status: Never used Tobacco e-Cigarette/Vaping Use: Never Used Advance Directives Date on File: 06/04/21 Current occupational status: employed 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 needs: No Hearing needs: No Vision needs: No Review of Systems Const All systems reviewed & are unremarkable except as noted in HPI and below ENT Reports Normal hearing present Neuro Reports Normal hearing present Physical Exam Vital Signs: Last Vital Signs Pulse 75 01/25/24 08:15 BP 115/70 01/25/24 08:15 Pulse Ox 97 01/25/24 08:15 Oxygen Delivery Method Room Air 01/25/24 08:15 BMI result Body Mass Index 31.9 Const General: cooperative Nutritional Appearance: overweight Orientation/consciousness: patient oriented x3 HEENT Throat: Yes other (mallampati grade 2) Resp Effort & Inspection: normal respiratory effort and able to speak in complete sentences Neuro General: patient oriented x3, gait normal, moves all extremities and no focal motor deficits Cranial nerves: Yes Bilaterally intact EOM present, Yes Normal facial strength present, Yes Midline tongue present, Yes Symmetric palate elevation present, Yes Normal hearing present, Yes Ability to bilaterally rotate head present and Yes Ability to bilaterally elevate shoulders present Cognition (Neuro): normal cognition Gait exam (Neuro): Normal gait present Motor exam (neuro): 5/5 motor strength present throughout, Pronator motor function not present and no tremor noted Psych Appearance: grossly normal Mental Status: mental status grossly normal Speech and movement: Normal speech and movement present Affect: normal affect Attitude: cooperative Assessment & Plan Assessment & Plan (1) DEBI (obstructive sleep apnea): Comment: Mild degree of sleep apnea. The AHI was 13/hr and oxygen eliseo was 84%. Code(s): G47.33 - Obstructive sleep apnea (adult) (pediatric) Plan Resent APAP [id number] order to [facility]. [facility] information given to patient. Stressed compliance, use CPAP nightly and more than 4 hrs. Refer patient to ENT for evaluation of snoring. Orders: Referrals Ear/Nose/Throat Referral G47.33 - Obstructive sleep apnea (adult) (pediatric), R06.83 - Snoring Coding Level of Care Code Est Pt Level 3 (67803) Diagnoses DEBI (obstructive sleep apnea) G47.33
[2024-01-25 08:15] VITALS: BP 115/70; PULSE 75; O2SAT 97; BMI 31.9
== END 2024-01-25 08:38 | disposition home or self-care (01) ==
PROVIDERS: PCP Nurse Practitioner Family; Visit Provider Nurse Practitioner Family
DX: G47.33 Obstructive sleep apnea (adult) (pediatric) (principal)
CPT/HCPCS: 99213

== ENCOUNTER → 2024-01-25 07:38 | Outpatient (BNVA) | payer BC, SELFPAY | PROVIDERS: PCP Nurse Practitioner Family; Visit Provider Nurse Practitioner Family ==

== ENCOUNTER 2024-05-17 08:02 | Outpatient (AMB) | payer BC, SELFPAY ==
[2024-05-17 08:27] VITALS: BP 124/82; PULSE 73; O2SAT 96; BMI 33.1
--- NOTE | 2024-05-17 08:27 | A.OFFVIS_ITS ---
Vital Signs 05/17/24 08:27 Height 6 ft Weight 244 lb BMI 33.1 BP 124/82 Blood Pressure Location Rt brachial Position Sitting Pulse 73 Pulse Source Pulse Oximeter Pulse Oximetry (%) 96 Oxygen Delivery Method Room Air Intake Visit Reasons: follow up Sleep Apnea-CONF Intake Note: Patient presents for follow up sleep apnea. patient using cpap and working well,no issues waking up at night. Allergies horse dander Allergy (Verified 05/17/24 08:32) Itching general hayfever Allergy (Severe, Uncoded 05/17/24 08:32) sneezing HPI Comments Details: 34-yr-old male presents for follow-up visit of sleep apnea. Pt denies any significant interval medical history changes. HST showed mild DEBI w/ AHI 12.8/hr and O2 naidr 84%. He has since started APAP, which he is tolerating well. He has less snoring. He feels more refreshed during the day. He odes hvae an ENT consult scheduled for Nov to see if he is a candidate for alternate DEBI tx's. Denies bruxism. 04/17/24-05/16/24, APAP compliance report reveals APAP 5-15 cmH2O; overall usage of 100% with usage > 4 hours of 100%; and residual AHI of 1.3/hr. [facility] Medical History COVID-19 vaccine administered Esophageal stricture Foot fracture, right GERD (gastroesophageal reflux disease) History of snoring Hx of migraine headaches Minimal depression Surgical History Hx of wisdom tooth extraction History of esophagogastroduodenoscopy (EGD) Family History Maternal Grandfather Throat cancer Diabetes Paternal Grandmother Hypertension Father Mental health disorder Social History Household Members: Spouse and Children Household Members Other:: , 1 child- Housing: House Are you a primary healthcare associate to a significant other at home: No Do you presently have visiting nurse or other home services: No Alcohol intake: current Alcohol intake frequency: does not drink Patient Tobacco Use Status: Never used Tobacco e-Cigarette/Vaping Use: Never Used Advance Directives Date on File: 06/04/21 Current occupational status: employed 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 needs: No Hearing needs: No Vision needs: No Review of Systems Const All systems reviewed & are unremarkable except as noted in HPI and below Physical Exam Vital Signs: Last Vital Signs Pulse 73 05/17/24 08:27 BP 124/82 05/17/24 08:27 Pulse Ox 96 05/17/24 08:27 Oxygen Delivery Method Room Air 05/17/24 08:27 BMI result Body Mass Index 33.1 Const General: no acute distress Orientation/consciousness: patient oriented x3 HEENT Other: Mallampati stage 3 Resp Effort & Inspection: normal respiratory effort and able to speak in complete sentences Auscultation: clear to auscultation bilaterally Cardio Rate: regular rate Rhythm: regular rhythm Neuro General: patient oriented x3 Psych Mental Status: mental status grossly normal Speech and movement: Clear speech present Attitude: cooperative Results Reviewed Results Reviewed: PAP compliance report- see HPI Assessment & Plan Assessment & Plan (1) DEBI (obstructive sleep apnea): Comment: Mild degree of sleep apnea. The AHI was 13/hr and oxygen eliseo was 84%. Code(s): G47.33 - Obstructive sleep apnea (adult) (pediatric) Category: Medical Plan Continue APAP 5-15 cmH2O w/ EPR nightly > 4 hours, as pt continues to have good clinical effect from use.. Clean CPAP machine and supplies routinely. Change CPAP supplies routinely. ENT consult as scheduled. Pt to contact us or respiratory company with any questions or concerns. f/u in 12 months or sooner prn. Coding Level of Care Code Est Pt Level 3 (90312) Diagnoses DEBI (obstructive sleep apnea) G47.33
== END 2024-05-17 09:09 | disposition home or self-care (01) ==
PROVIDERS: PCP Nurse Practitioner Family; Visit Provider Nurse Practitioner Family
DX: G47.33 Obstructive sleep apnea (adult) (pediatric) (principal)
CPT/HCPCS: 99213

== ENCOUNTER → 2024-05-17 08:02 | Outpatient (BNVA) | payer BC, SELFPAY | PROVIDERS: PCP Nurse Practitioner Family; Visit Provider Nurse Practitioner Family ==

== ENCOUNTER 2024-06-19 08:44 | Outpatient (AMB) | payer BC, SELFPAY ==
[2024-06-19 09:17] VITALS: BP 122/74; PULSE 82; TEMP 36.9; O2SAT 98; BMI 32.4
--- NOTE | 2024-06-19 09:17 | MHC.OFFVISCO ---
Intake Vital Signs 06/19/24 09:17 Weight 239 lb Intake Visit Reasons: Persistent Cough/Blood in phlegm Allergies horse dander Allergy (Verified 05/17/24 08:32) Itching general hayfever Allergy (Severe, Uncoded 05/17/24 08:32) sneezing Anti-Coag Initial Assessment Social Hx Patient Tobacco Use Status: Never used Tobacco alcohol intake: current Alcohol intake frequency: does not drink Coding
--- NOTE | 2024-06-19 09:19 | MHC.OFFWIV ---
Intake Vital Signs 06/19/24 09:17 Height 6 ft Weight 239 lb BMI 32.4 BP 122/74 Blood Pressure Location Rt brachial Position Sitting Pulse 82 Pulse Source Pulse Oximeter Temp 98.4 F Temp Source Oral Pulse Oximetry (%) 98 Oxygen Delivery Method Room Air Intake Visit Reasons: Persistent Cough/Blood in phlegm Intake Note: pt is here for persistent cough with blood in phelm and states he has chest tightness Patient Tobacco Use Status: Never used Tobacco Allergies horse dander Allergy (Verified 06/19/24 09:19) Itching general hayfever Allergy (Severe, Uncoded 05/17/24 08:32) sneezing Do you need a note to return to daycare/school/sports/work: Yes HPI HPI Comments History of Present Illness Details Patient is a 34-year-old male complaining of a lingering cough after he had what he called a ?summer cold?. He says all of his other symptoms went away however he still coughing and has some chest tightness. He states last night he ended up in a coughing fit and when he finally cough something up, it was yellow phlegm that was blood-tinged. It happened again this morning. He denies any leg pain or swelling or discoloration. He denies any fevers, shortness of breath, history of a DVT or PE, or family history of a DVT or PE. [facility] Medical History COVID-19 vaccine administered Esophageal stricture Foot fracture, right GERD (gastroesophageal reflux disease) History of snoring Hx of migraine headaches Minimal depression Surgical History Hx of wisdom tooth extraction History of esophagogastroduodenoscopy (EGD) Family History Maternal Grandfather Throat cancer Diabetes Paternal Grandmother Hypertension Father Mental health disorder Social History Household Members: Spouse and Children Household Members Other:: , 1 child- Housing: House Are you a primary career development engineer to a significant other at home: No Do you presently have visiting nurse or other home services: No Alcohol intake: current Alcohol intake frequency: does not drink Patient Tobacco Use Status: Never used Tobacco e-Cigarette/Vaping Use: Never Used Advance Directives Date on File: 06/04/21 Current occupational status: employed 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 needs: No Hearing needs: No Vision needs: No Review of Systems Const All systems reviewed & are unremarkable except as noted in HPI and below Physical Exam Vital Signs: Last Vital Signs Temp 98.4 F 06/19/24 09:17 Pulse 82 06/19/24 09:17 BP 122/74 06/19/24 09:17 Pulse Ox 98 06/19/24 09:17 Oxygen Delivery Method Room Air 06/19/24 09:17 BMI result Body Mass Index 32.4 Const General: cooperative, healthy appearing, comfortable, no acute distress and well developed Orientation/consciousness: patient oriented x3 Limitations: no limitations HEENT Head: Yes normal to inspection Ears: hearing grossly normal bilaterally and external ears normal General nose exam: Normal external nose present and Normal nares present Face and sinus: Yes normal facial exam and Yes sinuses nontender Throat: Yes tonsils normal, Yes uvula midline and Yes posterior oropharynx abnormal (Erythema) Eyes General: appearance normal, both eyes and all related structures Neck Neck: Yes normal visual inspection and Yes full ROM Resp Effort & Inspection: normal respiratory effort and able to speak in complete sentences Auscultation: clear to auscultation bilaterally Cardio Rate: regular rate Rhythm: regular rhythm Heart sounds: normal S1 and S2 Skin General skin exam: no rashes or lesions noted Neuro General: patient oriented x3 Extrem General: Yes normal to inspection Assessment & Plan Assessment & Plan (1) Cough with hemoptysis: Code(s): R04.2 - Hemoptysis Plan: Discussed with his PCP, we will get D-dimer to rule out PE, very low suspicion as patient is not tachycardic he is not hypoxic however he has had a few episodes of blood-tinged sputum. Which could just be from irritation from his cough. (2) Atypical pneumonia: Code(s): J18.9 - Pneumonia, unspecified organism Plan: Sent Z-Tony to pharmacy, I did educate patient if his symptoms get worse or he feels short of breath or he has any unilateral leg swelling that he should go to the emergency department [facility] to rule out a PE. Plan see above Orders: Orders D Dimer High Sensitivity Today R04.2 - Hemoptysis Medications: New azithromycin For 250 mg dose pack: take 500 mg today (day 1), then 250 mg for 4 days (days 2-5) PO 6 tabs 0RF Coding Level of Care Code Est Pt Level 4 (97660) Diagnoses Cough with hemoptysis R04.2 Atypical pneumonia J18.9
== END 2024-06-19 09:49 | disposition home or self-care (01) ==
PROVIDERS: PCP Nurse Practitioner Family; Visit Provider Physician Assistant
DX: R04.2 Hemoptysis (principal); J18.9 Pneumonia, unspecified organism
CPT/HCPCS: 99214

== ENCOUNTER 2024-06-19 09:36 | Outpatient (REF) | payer BC, SELFPAY ==
[2024-06-19 13:26] LABS: D Dimer High Sensitivity 157 NG/ML
== END 2024-06-19 09:37 | disposition home or self-care (01) ==
LOC: HO.HMGCLDS 09:36
PROVIDERS: PCP Nurse Practitioner Family; Visit Provider Physician Assistant
DX: R04.2 Hemoptysis (principal)
CPT/HCPCS: 36415; 85379

== ENCOUNTER 2024-07-04 10:03 | Outpatient (AMB) | payer BC, SELFPAY ==
[2024-07-04 10:08] VITALS: BP 120/78; PULSE 66; O2SAT 96; BMI 32.4
--- NOTE | 2024-07-04 10:08 | A.OFFPC_ITS ---
Vital Signs 07/04/24 10:08 Height 6 ft Weight 239 lb BMI 32.4 BP 120/78 Blood Pressure Location Rt brachial Position Sitting Pulse 66 Pulse Source Pulse Oximeter Pulse Oximetry (%) 96 Oxygen Delivery Method Room Air Intake Visit Reasons: I would like a checkup and request bloodwork Intake Note: pt is here for check up and requesting new blood work order Sales Project Coordinator Required: No Allergies horse dander Allergy (Verified 07/04/24 10:09) Itching general hayfever Allergy (Severe, Uncoded 05/17/24 08:32) sneezing Medication List - Last Reconciled 07/04/24 by Saurabh Miner, [facility] famotidine 10 mg PO DAILY loratadine 10 mg PO DAILY PRN multivitamin (Daily Multi-Vitamin tablet) 1 tab PO DAILY Tobacco use date assessed: 07/04/24 Dental Screening Dental Screen Date: 07/04/24 Did you have a dental visit in the last 12 months?: Yes Did you have a dental problem in the last 6 months where you did not have access to dental care?: No Was dental information given to patient?: Patient has dentist HPI I would like a checkup and request bloodwork HPI Details Pt was seen in the walk-in on 06/19 c/o cough. He also had an episode of blood-tinged sputum. D-dimer was 157. Pt was treated for pneumonia with zpak. He reports doing well today. Will order labs. 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 Pt has a family hx of tariq's. Will order labs. Denies fever, chills, chest pain, shortness of breath, and dizziness. [facility] Medical History COVID-19 vaccine administered Esophageal stricture Foot fracture, right GERD (gastroesophageal reflux disease) History of snoring Hx of migraine headaches Minimal depression Surgical History Hx of wisdom tooth extraction History of esophagogastroduodenoscopy (EGD) Family History Maternal Grandfather Throat cancer Diabetes Paternal Grandmother Hypertension Father Mental health disorder Social History Household Members: Spouse and Children Household Members Other:: , 1 child- Housing: House Are you a primary laboratory animal care veterinarian to a significant other at home: No Do you presently have visiting nurse or other home services: No Alcohol intake: current Alcohol intake frequency: does not drink Patient Tobacco Use Status: Never used Tobacco e-Cigarette/Vaping Use: Never Used Advance Directives Date on File: 06/04/21 Current occupational status: employed 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 1. Little interest or pleasure in doing things: several days 2. Feeling down, depressed, or hopeless: not at all 3. Trouble falling or staying asleep, or sleeping too much: not at all 4. Feeling tired or having little energy: not at all 5. Poor appetite or overeating: not at all 6. Feeling bad about yourself - or that you are a failure or have let yourself or your family down: not at all 7. Trouble concentrating on things, such as reading the newspaper or watching television: not at all 8. Moving or speaking so slowly that other people could have noticed. Or the opposite - being so fidgety or restless that you have been moving around a lot more than usual: not at all 9. Thoughts that you would be better off or of hurting yourself in some way: not at all Total score: 1 Depression Screening Interpretation: Negative Depression Screening Done: Yes 74168 - PHQ-9 Billing: Yes Source: Developed by Drs. Jeronimo Suh, Aurora Capellan, Santiago Rodriguez and colleagues, with an educational jessica from [employer]. Thrive Questionnaire Date Thrive assessed: 07/04/24 I am a: Patient What is your living situation today?: I have a steady place to live Within the past 12 months, did the food you bought not last and you didn't have the money to get more?: Never true Within the past 12 months, did you worry whether your food would run out before you got money to buy more?: Never true Do you have trouble paying for medicines?: No Do you have trouble getting transportation to medical appointments?: No Do you have trouble paying your heating and electricity bill?: No Do you have trouble taking care of your child, family member or friend?: I choose not to answer this question Do you have trouble with day-to-day activities such as bathing, preparing meals, shopping, managing finances, etc.?: No Are you currently unemployed and looking for a job?: No Are you interested in more education?: No Please select the resources that you would like help with: Housing/Prison Currently or been in a relationship where the following occur: No concerns reported THRIVE Score: 0 AUDIT C Alcohol Use Questionnaire (AUDIT-C) 1. How often do you have a drink containing alcohol?: 2-4 times a month 2. How many drinks containing alcohol do you have on a typical day when you are drinking?: 1 or 2 3. How often do you have six or more drinks on one occasion?: Never Total Score: 2 Score Reviewed/Action Taken: Yes ORLY-7 AMB Questionnaire ORLY-7 Date ORLY - 7 assessed: 07/04/24 Feeling nervous, anxious, or on edge: 0 = Not at all Not being able to stop or control worryin = Not at all Worrying too much about different things: 0 = Not at all Trouble relaxin = Several days Being so restless that it is hard to sit still: 0 = Not at all Becoming easily annoyed or irritable: 1 = Several days Feeling afraid as if something awful might happen: 0 = Not at all Total ORLY-7 score (0-4 normal; 5-9 mild; 10-14 moderate; 15-21 severe): 2 Source: Developed by Drs. Jeronimo Suh, Aurora Capellan, Santiago Rodriguez and colleagues, with an educational jessica from [employer]. ORLY-7 Assessment Billing ORLY-7 Assessment Tool: ORLY-7 Assessment 82154 Review of Systems Const Reports as per HPI Physical exam (Primary Care) Vital Signs: Last Vital Signs Pulse 66 07/04/24 10:08 BP 120/78 07/04/24 10:08 Pulse Ox 96 07/04/24 10:08 Oxygen Delivery Method Room Air 07/04/24 10:08 BMI result Body Mass Index 32.4 Tobacco/Smoking Status: Tobacco use Status Tobacco use date assessed 07/04/24 07/04/24 10:10 Patient Tobacco Use Status Never used Tobacco 07/04/24 10:10 e-Cigarette/Vaping Use Never Used 07/04/24 10:10 PHQ-9: PHQ-9 Score PHQ-9: Total score 1 07/04/24 10:39 Depression Screening Interpretation: Negative Thrive Assessment: Date of Thrive Assessment Date Thrive assessed 07/04/24 07/04/24 10:10 Currently or been in a relationship where the following occur: No concerns reported Const General: cooperative Orientation/consciousness: patient oriented x3 Resp Effort & Inspection: normal respiratory effort Auscultation: clear to auscultation bilaterally Cardio Rate: regular rate Rhythm: regular rhythm Heart sounds: S1 normal heart sound present and S2 normal heart sound present Neuro General: patient oriented x3 Extrem Right lower extremity: no edema Left lower extremity: no edema Psych Appearance: grossly normal Mental Status: mental status grossly normal Speech and movement: Normal speech and movement present Affect: normal affect Attitude: cooperative Thought process: Normal thought process present Thought content: Normal thought content present Insight: Good insight present (Psych) Judgement: Good judgement present (Psych) Assessment and Plan Assessment & Plan (1) Atypical pneumonia: Code(s): J18.9 - Pneumonia, unspecified organism Plan: Labs ordered, pt reports doing well (2) Exposure to rabies: Code(s): Z20.3 - Contact with and (suspected) exposure to rabies Plan: Labs ordered (3) Physical exam: Code(s): Z00.00 - Encounter for general adult medical examination without abnormal findings Plan: labs ordered (4) Family history of Tariq thyroiditis: Code(s): Z83.49 - Family history of other endocrine, nutritional and metabolic diseases Plan: labs ordered Plan The patient agreed to the use of a durable medical equipment technician for this encounter. Scribed for SANCHO Pimentel by Nidia Anna durable medical equipment technician, on 07/04/2024 at 10:40 EST. Orders: Orders Complete Blood Count Auto Diff Today J18.9 - Pneumonia, unspecified organism, Z00.00 - Encounter for general adult medical examination without abnormal findings Comprehensive [place]. Panel Fast Today J18.9 - Pneumonia, unspecified organism, Z00.00 - Encounter for general adult medical examination without abnormal findings Rabies Neut. Ab Titration Today Z20.3 - Contact with and (suspected) exposure to rabies TSH reflex Free T4 Today J18.9 - Pneumonia, unspecified organism, Z00.00 - Encounter for general adult medical examination without abnormal findings UA CC w/rflx Micro + Cult Today J18.9 - Pneumonia, unspecified organism, Z00.00 - Encounter for general adult medical examination without abnormal findings Lipid Panel Today J18.9 - Pneumonia, unspecified organism, Z00.00 - Encounter for general adult medical examination without abnormal findings Thyroid Peroxidase Antibodies Today Z83.49 - Family history of other endocrine, nutritional and metabolic diseases Coding Level of Care Code Est Pt Level 3 (49260) Diagnoses Atypical pneumonia J18.9 Exposure to rabies Z20.3 Physical exam Z00.00 Family history of Tariq thyroiditis Z83.49 Additional Codes ORLY-7 Assessment Billing - ORLY-7 Assessment Tool: ORLY-7 Assessment 51667 ([id number])
== END 2024-07-04 12:23 | disposition home or self-care (01) ==
PROVIDERS: PCP Nurse Practitioner Family; Visit Provider Nurse Practitioner Family
DX: J18.9 Pneumonia, unspecified organism (principal); Z20.3 Contact with and (suspected) exposure to rabies; Z83.49 Family history of other endocrine, nutritional and metabolic diseases
CPT/HCPCS: 99213

== ENCOUNTER 2024-07-05 06:26 | Outpatient (REF) | payer BC, SELFPAY ==
[2024-07-05 10:14] LABS: MANUAL DIFF FLAG NO
[2024-07-05 10:23] LABS: Appearance Urine Clear; Color Urine Yellow; Glucose Urine UA Negative (Negative); Leukocyte Esterase Urine Negative (Negative); Nitrite Urine Negative (Negative); PH 6.5 (5.0-9.0); Urine Blood Negative (Negative); Urine Ketones Negative (Negative); Urine Protein Negative (Neg-Trace)
[2024-07-05 10:25] LABS: Basophils Percent Auto 0.5 % (0-2); Eosinophils Absolute Auto 0.5 X10*3/uL (0.0-0.4); Hematocrit 43.1 % (42.0-52.0); Hemoglobin 15.1 g/dl (14.0-18.0); Imm Gran Abs Auto 0.03 X10*3/uL (0.00-0.03); Imm Gran Pct Auto 0.4 % (0.0-0.4); Lymphocytes Absolute Auto 2.8 X10*3/uL (1.2-4.9); Mean Corpuscular Hemoglobin 32.1 pg (27.0-33.0); Mean Corpuscular Volume 91.7 fL (80.0-98.0); Mean Platelet Volume 8.6 fL (9.4-12.4); Monocytes Absolute Auto 0.7 X10*3/uL (0.1-1.2); Monocytes Percent Auto 8.9 % (2-11); Neutrophils Absolute Auto 3.4 x10*3/uL (2.0-8.3); Neutrophils Percent Auto 45.2 % (45-73); Platelet Count 278 X10*3/uL (160-400); Red Cell Distribution Width 12.3 % (11.0-16.0); White Blood Count 7.4 X10*3/uL (4.8-10.8)
[2024-07-05 10:56] LABS: Alanine Aminotransferase 34 U/L (0-40); Albumin Level 4.2 g/dL (3.5-5.0); Alkaline Phosphatase 63 U/L (39-117); Anion Gap 10 (12-20); Aspartate Amino Transferase 27 U/L (5-37); Bilirubin Total 0.4 mg/dL (0.0-1.0); Blood Urea Nitrogen 13 mg/dL (9-16); Calcium 8.9 mg/dL (8.4-10.2); Carbon Dioxide 26 mmol/L (22-29); Chloride 108 mmol/L (96-108); Cholesterol 148 mg/dL (<200); Estimated Glomerular Filt Rate > 60; Glucose Fasting 83 mg/dL (60-99); HDL Cholesterol 31 mg/dL (>40); LDL Cholesterol Calculated 89 mg/dL (<100); Potassium 4.1 mmol/L (3.3-5.1); Sodium 140 mmol/L (135-145); TSH reflex Free T4 1.37 uIU/mL (0.32-4.0); Triglycerides 141 mg/dL (<150)
[2024-07-06 11:04] LABS: Thyroid Peroxidase Antibodies <1 IU/mL (<9)
== END 2024-07-05 06:27 | disposition home or self-care (01) ==
LOC: HO.HMGCLDS 06:26
PROVIDERS: PCP Nurse Practitioner Family; Visit Provider Nurse Practitioner Family
DX: Z00.00 Encounter for general adult medical examination without abnormal findings (principal); J18.9 Pneumonia, unspecified organism; Z20.3 Contact with and (suspected) exposure to rabies; Z83.49 Family history of other endocrine, nutritional and metabolic diseases
CPT/HCPCS: 36415; 80053; 80061; 81003; 84443; 85025; 86376; 86382

== ENCOUNTER 2024-08-29 08:01 | Outpatient (AMB) | payer BC, SELFPAY ==
[2024-08-29 08:04] VITALS: BP 112/72; PULSE 87; O2SAT 98; BMI 33.1
--- NOTE | 2024-08-29 08:04 | A.OFFPC_ITS ---
Vital Signs 08/29/24 08:04 Height 6 ft Weight 244 lb BMI 33.1 BP 112/72 Blood Pressure Location Lt brachial Position Sitting Pulse 87 Pulse Source Pulse Oximeter Pulse Oximetry (%) 98 Intake Visit Reasons: PE Intake Note: pt is here for physical exam Polymerization Supervisor Required: No Accompanied by: Self / Same As Patient Allergies horse dander Allergy (Verified 08/29/24 08:05) Itching general hayfever Allergy (Severe, Uncoded 05/17/24 08:32) sneezing Medication List - Last Reconciled 08/29/24 by SANCHO Davis famotidine 10 mg PO DAILY loratadine 10 mg PO DAILY PRN multivitamin (Daily Multi-Vitamin tablet) 1 tab PO DAILY Tobacco use date assessed: 07/04/24 Dental Screening Dental Screen Date: 07/04/24 HPI PE HPI Details Pt is here for a PE. Will order labs. [facility] Medical History COVID-19 vaccine administered GERD (gastroesophageal reflux disease) History of snoring Foot fracture, right Hx of migraine headaches Esophageal stricture Minimal depression Surgical History Hx of wisdom tooth extraction History of esophagogastroduodenoscopy (EGD) Family History Maternal Grandfather Throat cancer Diabetes Paternal Grandmother Hypertension Father Mental health disorder Social History Household Members: Spouse and Children Household Members Other:: , 1 child- Housing: House Are you a primary career development manager to a significant other at home: No Do you presently have visiting nurse or other home services: No Alcohol intake: current Alcohol intake frequency: does not drink Patient Tobacco Use Status: Never used Tobacco e-Cigarette/Vaping Use: Never Used Advance Directives Date on File: 06/04/21 service: No Current occupational status: employed 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 48102 - PHQ-9 Billing: Patient declined-do not bill Source: Developed by Drs. Jeronimo Suh, Aurora Capellan, Santiago Rodriguez and colleagues, with an educational jessica from [employer]. Thrive Questionnaire Date Thrive assessed: 08/29/24 I am a: Patient What is your living situation today?: I have a steady place to live Within the past 12 months, did the food you bought not last and you didn't have the money to get more?: Never true Within the past 12 months, did you worry whether your food would run out before you got money to buy more?: Never true Do you have trouble paying for medicines?: No Do you have trouble getting transportation to medical appointments?: No Do you have trouble paying your heating and electricity bill?: No Do you have trouble taking care of your child, family member or friend?: I choose not to answer this question Do you have trouble with day-to-day activities such as bathing, preparing meals, shopping, managing finances, etc.?: No Are you currently unemployed and looking for a job?: No Are you interested in more education?: No Please select the resources that you would like help with: None Currently or been in a relationship where the following occur: No concerns reported THRIVE Score: 0 ORLY-7 AMB Questionnaire ORLY-7 Date ORLY - 7 assessed: 07/04/24 Source: Developed by Drs. Jeronimo Suh, Aurora Capellan, Santiago Rodriguez and colleagues, with an educational jessica from [employer]. ORLY-7 Assessment Billing ORLY-7 Assessment Tool: pt declined-do not bill Review of Systems Const Denies chills and Denies fever(s) Eyes Denies blurry vision ENT Denies vertigo, Denies dizziness and Denies sore throat Card Denies chest pain at rest, Denies chest pain with activity, Denies diaphoresis, Denies dyspnea and Denies dyspnea on exertion Resp Denies cough, Denies dyspnea, Denies dyspnea on exertion and Denies wheezing GI Denies abdominal pain, Denies melena, Denies hematochezia, Denies constipation, Denies diarrhea and Denies loose stools Denies hematuria Musc Denies numbness and Denies tingling Skin/Breast Denies lesions Neuro Denies vertigo, Denies dizziness, Denies numbness and Denies tingling Psych Denies anxiety, Denies depression, Denies homicidal ideation, Denies suicidal ideation and Denies other (substance abuse) Aller/Immun Denies wheezing Physical exam (Primary Care) Vital Signs: Last Vital Signs Pulse 87 08/29/24 08:04 BP 112/72 08/29/24 08:04 Pulse Ox 98 08/29/24 08:04 BMI result Body Mass Index 33.1 Tobacco/Smoking Status: Tobacco use Status Tobacco use date assessed 07/04/24 08/29/24 08:06 Patient Tobacco Use Status Never used Tobacco 08/29/24 08:06 e-Cigarette/Vaping Use Never Used 08/29/24 08:06 Thrive Assessment: Date of Thrive Assessment Date Thrive assessed 08/29/24 08/29/24 08:06 Currently or been in a relationship where the following occur: No concerns reported Const General: cooperative Nutritional Appearance: obese Orientation/consciousness: patient oriented x3 HENMT Head: Yes normal to inspection, Yes normocephalic and Yes atraumatic Ears: TM's normal bilaterally Eyes General: appearance normal, both eyes and all related structures Alignment and Position: alignment normal and position normal Neck Neck: Yes normal visual inspection, Yes no lymphadenopathy and Yes supple Resp Effort & Inspection: normal respiratory effort Auscultation: clear to auscultation bilaterally Cardio Rate: regular rate Rhythm: regular rhythm Heart sounds: S1 normal heart sound present, S2 normal heart sound present and no murmurs GI Palpation (GI): Soft to palpation and nontender Auscultation: normal bowel sounds Male General Exam: Yes normal external exam Penis: normal penis Scrotum: scrotum normal, testes descended bilaterally and no inguinal hernias Testes: no testicular mass Skin Rashes: no rashes Neuro General: patient oriented x3, moves all extremities, no focal motor deficits and deep tendon reflexes 2+ bilaterally Romberg Test: Negative Psych Appearance: grossly normal Mental Status: mental status grossly normal Speech and movement: Normal speech and movement present Affect: normal affect Attitude: cooperative Thought process: Normal thought process present Thought content: Normal thought content present Insight: Good insight present (Psych) Judgement: Good judgement present (Psych) Assessment and Plan Assessment & Plan (1) Physical exam: Code(s): Z00.00 - Encounter for general adult medical examination without abnormal findings Plan: Labs ordered Plan The patient agreed to the use of a medical education specialist for this encounter. Scribed for SANCHO Pimentel by stephani Jean scribe, on 08/29/2024 at 08:15 EST. Coding Level of Care Code Est Pt Prev Care 18-39y(33486) Diagnoses Physical exam Z00.00
== END 2024-08-29 08:27 | disposition home or self-care (01) ==
PROVIDERS: PCP Nurse Practitioner Family; Visit Provider Nurse Practitioner Family
DX: Z00.00 Encounter for general adult medical examination without abnormal findings (principal)

== ENCOUNTER → 2024-08-29 08:01 | Outpatient (BNVA) | payer BC, SELFPAY | PROVIDERS: PCP Nurse Practitioner Family; Visit Provider Nurse Practitioner Family ==

== ENCOUNTER 2024-10-25 10:33 | Outpatient (AMB) | payer BC, SELFPAY ==
--- NOTE | 2024-10-25 10:46 | A.OFFVIS_ITS ---
Intake Visit Reasons: vasectomy consult Intake Note: New patient is present for Vasectomy Consult Currently has 1 child and it not expecting another child Sterilization Consent form signed by Patient Residential Case Manager Required: No Accompanied by: Self / Same As Patient Allergies horse dander Allergy (Verified 10/25/24 11:00) Itching general hayfever Allergy (Severe, Uncoded 10/25/24 11:00) sneezing HPI Comments Details: Leroy is a very pleasant male. He is a patient of Dr. Gaspar. 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 He is currently He has fathered - 1 child, with a single partner. The youngest child is - 4 years old. His partner is aware and permissive for a vasectomy Current form of control is combination IUD and hormonal which she is no longer tolerating. The vasectomy may be complicated due to a history of no complicating issues, inguinal hernia repair, orchidopexy, history of orchitis, orchiectomy. Patient education has been provided via AUA video, via printed information, risks of failure, recovery time, bruising and potential pain syndrome have been stressed Discussion today focused on the presence of vasectomy and the risks, benefits and alternatives that are available. Vasectomy as intended as a permanent form of control. Printed information and literature was provided to the patient. Overall there is a one in 2500 failure rate. This can occur at any time after vasectomy. Risks were discussed highlighting hematoma, spermatocele, epididymal congestion, development of sperm antibodies, and development of chronic pain estimated between 1-5%. The procedure was reviewed in detail. Anatomical diagrams of the male genitalia were used to explain the location of the vas deferens. The vas deferens will be transected, the proximal end will be cauterized, a metal clip would be applied to separate the 2 vas deferens ends. It was explained the procedure will be done in the office and takes approximately 10-15 minutes. Less common problems that arise with vasectomy include hematoma, bleeding, allergic reaction to anesthetic, epididymal infection, epididymal congestion, scrotal discomfort, spermatic leak, spermatic granuloma and the possibility of antisperm antibodies. He understands these risks and wishes to proceed. Consent was signed at the office today. He also understands that it takes 12 weeks for sperm to fully clear the system. He will need to provide a semen sample at 12 weeks and if this is not clear a 2nd sample at 16 weeks. Medical clearance to stop using protection will only be provided if he satisfies published criteria for sperm clearance. [facility] Medical History COVID-19 vaccine administered GERD (gastroesophageal reflux disease) History of snoring Foot fracture, right Hx of migraine headaches Esophageal stricture Minimal depression Surgical History Hx of wisdom tooth extraction History of esophagogastroduodenoscopy (EGD) Family History Maternal Grandfather Throat cancer Diabetes Paternal Grandmother Hypertension Father Mental health disorder Social History Household Members: Spouse and Children Household Members Other:: , 1 child- Housing: House Are you a primary career counselor to a significant other at home: No Do you presently have visiting nurse or other home services: No Alcohol intake: current Alcohol intake frequency: does not drink Patient Tobacco Use Status: Never used Tobacco e-Cigarette/Vaping Use: Never Used Advance Directives Date on File: 06/04/21 service: No Current occupational status: employed 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 needs: No Hearing needs: No Vision needs: No Review of Systems Const Denies chills and Denies fever(s) Card Reports no additional complaints and Denies syncope Resp Denies cough GI Denies abdominal pain and Denies heartburn Reports as per HPI and Denies change in libido Neuro Denies syncope Psych Denies change in libido Endo Denies change in libido Physical Exam Const General: cooperative, healthy appearing, comfortable and no acute distress Orientation/consciousness: patient oriented x3 HEENT Face and sinus: Yes normal facial exam Mouth: moist mucous membranes Neck Neck: Yes normal visual inspection, Yes full ROM and Yes trachea midline Chest Chest palpation & inspection: normal inspection of the chest Resp Effort & Inspection: normal respiratory effort, able to speak in complete sentences and no respiratory distress GI Inspection: Yes normal to inspection Back/Spine/Pelvis Cervical Spine: normal cervical lordosis Thoracic/Lumbar Spine: thoracic and lumbar spine normal to inspection Skin General skin exam: no rashes or lesions noted Neuro General: patient oriented x3, gait normal, tone normal and moves all extremities Extrem General: Yes normal to inspection and Yes capillary refill normal Assessment & Plan Assessment & Plan (1) Anxiety about health: Code(s): R45.89 - Other symptoms and signs involving emotional state Category: Medical Plan He will call and new year for organizing vasectomy Medications: New diazepam Take medication after arrival at office 2 mg PO BID 1 day PRN 2 tabs 0RF anxiety R45.89 - Other symptoms and signs involving emotional state tramadol 50 mg PO Q8H PRN 7 tabs 0RF pain N43.3 - Hydrocele, unspecified, R45.89 - Other symptoms and signs involving emotional state Patient Instructions: Imaging studies, laboratory and physical exam results were discussed and reviewed in detail. No major barriers to patient understanding were identified. An opportunity to ask questions regarding the treatment plan was provided. All questions were answered. The patient expressed understanding and agreement with the above treatment plan. The patient is aware they should contact our office by phone for worsening of their current condition or the appearance of new urologic symptoms. Compliance is encouraged with any medications and followup testing that is ordered. It is a privilege to participate in the urologic care of your patient. If you have any questions or concerns regarding treatment for the above conditions, or other urologic issues, please do not hesitate to contact me. The office telephone contact is [phone]. This note is constructed using voice recognition software. While every effort has been made to ensure accuracy wood tool maker errors may have been included. Yours sincerely, Dr Davon Downs MD, VARGAS [facility] - Urology Providers of Expert, Compassionate Care for the Genitourinary System Coding Level of Care Code New Pt Level 4 (30779) Diagnoses Anxiety about health R45.89
== END 2024-10-25 11:31 | disposition home or self-care (01) ==
PROVIDERS: PCP Nurse Practitioner Family; Visit Provider Urology
DX: R45.89 Other symptoms and signs involving emotional state (principal)
CPT/HCPCS: 99204

== ENCOUNTER → 2024-10-25 10:33 | Outpatient (BNVA) | payer BC, SELFPAY | PROVIDERS: PCP Nurse Practitioner Family; Visit Provider Urology ==

== ENCOUNTER 2024-12-27 08:49 | Outpatient (AMB) | payer BC, SELFPAY ==
--- NOTE | 2024-12-27 09:32 | AM.OFFWIN_ITS ---
Intake Vital Signs 12/27/24 10:01 Weight 269 lb BP 110/80 Blood Pressure Location Rt brachial Position Sitting Pulse 81 Pulse Source Pulse Oximeter Temp 98.7 F Temp Source Oral Pulse Oximetry (%) 97 Intake Visit Reasons: EP-gastric upset, diarrhea, cramping Intake Note: Patient here for GI upset, nauseam diarrhea and cramping that started wednesday. Patient Tobacco Use Status: Never used Tobacco Allergies horse dander Allergy (Verified 12/27/24 10:01) Itching general hayfever Allergy (Severe, Uncoded 12/27/24 10:01) sneezing Do you need a note to return to daycare/school/sports/work: Yes HPI HPI Comments History of Present Illness Details 34 y/o male patient who presents to the walk in clinic with c/o GI upset since Wednesday. Reports abdominal cramping associated with diarrhea, and nausea but no vomiting. Denies fevers but reports chills. [facility] Medical History (Updated 12/27/24 @ 10:19 by Shiloh Piedra NP) Gastroenteritis COVID-19 vaccine administered GERD (gastroesophageal reflux disease) History of snoring Foot fracture, right Hx of migraine headaches Esophageal stricture Minimal depression Surgical History Hx of wisdom tooth extraction History of esophagogastroduodenoscopy (EGD) Family History Maternal Grandfather Throat cancer Diabetes Paternal Grandmother Hypertension Father Mental health disorder Social History Household Members: Spouse and Children Household Members Other:: , 1 child- Housing: House Are you a primary behavioral health care manager to a significant other at home: No Do you presently have visiting nurse or other home services: No Alcohol intake: current Alcohol intake frequency: does not drink Patient Tobacco Use Status: Never used Tobacco e-Cigarette/Vaping Use: Never Used Advance Directives Date on File: 06/04/21 service: No Current occupational status: employed 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 needs: No Hearing needs: No Vision needs: No Review of Systems Const All systems reviewed & are unremarkable except as noted in HPI and below Physical Exam Vital Signs: Last Vital Signs Temp 98.7 F 12/27/24 10:01 Pulse 81 12/27/24 10:01 BP 110/80 12/27/24 10:01 Pulse Ox 97 12/27/24 10:01 Const General: cooperative and no acute distress Nutritional Appearance: obese Orientation/consciousness: patient oriented x3 Resp Effort & Inspection: normal respiratory effort Auscultation: clear to auscultation bilaterally Cardio Heart sounds: S1 normal heart sound present and S2 normal heart sound present GI Inspection: Yes obesity Palpation (GI): Soft to palpation, not firm, Tenderness to palpation present (GI) in the RLQ, no guarding, not rigid and No hepatosplenomegaly present Auscultation: normal bowel sounds Rectal Exam - Male: Yes deferred Neuro General: patient oriented x3 Assessment & Plan Assessment & Plan (1) Gastroenteritis: Code(s): K52.9 - Noninfective gastroenteritis and colitis, unspecified Plan: Ordered SARs Hydrate well plenty of fluids such as Gatorade. Avoid [place]/oily foods. BLAND Orders: Orders SARS-CoV2/FLU/RSV Today R09.89 - Other specified symptoms and signs involving the circulatory and respiratory systems Medications: New ondansetron 8 mg PO Q8H 30 tabs 0RF K52.9 - Noninfective gastroenteritis and colitis, unspecified metoclopramide HCl (Reglan) 10 mg PO Q6H PRN 30 tabs 0RF nausea and vomiting K52.9 - Noninfective gastroenteritis and colitis, unspecified Coding Level of Care Code Est Pt Level 4 (18400) Diagnoses Gastroenteritis K52.9 Time Spent (min) 20
--- OUTSIDE RECORDS SUMMARY | 2024-12-27 09:44 | XMS_ITS | Data Portability ---
Author Organization [place] - [facility], Allergy Address [address] [place] [phone] Care Team Providers Care Campus Administrative Assistant Name Role Phone AKUA PEPE Primary Care Provider [phone] Assessment Encounter Date Assessment Date Assessment LastModified by Organization Details LastModified Time 09/01/2024 09/01/2024 Patient reports good control of his sleep and breathing and snoring with use of CPAP. His tonsils are small to average in size and I do not recommend any surgical intervention for them at this time. [email or web address] Not available 09/01/2024 14:18:41 Plan of Treatment Reminders Order Date Submit Date Provider Last Modified By Organization Details Last Modified Time Details Appointments None record ed. Lab None record ed. Referral None record ed. Procedures None record ed. Surgeries None record ed. Imaging None record ed. Medication Orders None record ed. Patient TargetsNo targets recorded. Patient InstructionsNo instructions recorded. Reason for Referral None Reported. Problems Name Problem SNOMED Code Status Onset Date Resolution Date Notes Provider Name and Address Organization Details Recorded Time Obstructive sleep apnea syndrome 10845799 Active 024 LISA GUZMAN MD [address] [place] [address], [place], [phone], [place] - [facility] 12:00:51 Snoring 44941189 Active LISA GUZMAN MD [address] [place] [address], [place], [phone], [facility] - [facility] 12:00:58 Problem Notes None recorded. Medical Equipment None Reported. Medications Name Sig Start Date Stop Date Status Note LastModified by Organization Details LastModified Time azithromycin 250 mg tablet active Not Available Not Availabl e Not Available Vitals Date Recorded Body height Body mass index (BMI) Body weight Provider Name and Address Organization Details Last Updated DateTime 09/01/2024 182.88 cm 33.1 kg/m2 011701.54 g Camilla Soto [place] - [facility] 09/01/2024 14:02:10 Social History None recorded. Functional Status None recorded. Mental Status None recorded. Family History Nothing Reported. Medical History No medical history recorded. Past Encounters Encounter ID Performer Location Encounter Start Date Encounter Closed Date Diagnosis/Indication Diagnosis SNOMED-CT Code Diagnosis ICD10 Code Diagnosis Note LISA GUZMAN MD [facility] [address] [phone] 09/01/2024 13:12:49 09/01/2024 14:18:57 Obstructive sleep apnea syndrome 69780859 G47.33 Snoring 90758818 R06.83 Health Concerns Section Related Observation LastModified by Organization Detai ls LastModified Time None Recorded Concern Status LastModified by Organization Details LastModified Time None Recorded Advance Directives Directive None Recorded Payers Encounter Date Sequence Insurance Name Policy Number Policy Bills Covered Member ID Bills Member ID Guarantor Name 09/01/2024 1 [place] [id number] Ileana Piña [id number] Ubaldo Winston Notes Date Note Type Note Provider Name and Address Organization Details Recorded Time 09/01/2024 text/html DEBI, snoringobta ined CPAP 02/2024 - snoring is resolved with use 10/2023 [facility] [place] [facility] and [place] - not recordedCPAP trial - well tolerated no tonsil infection 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
[2024-12-27 10:01] VITALS: BP 110/80; PULSE 81; TEMP 37.1; O2SAT 97
== END 2024-12-27 10:46 | disposition home or self-care (01) ==
PROVIDERS: PCP Nurse Practitioner Family; Visit Provider Nurse Practitioner Family
DX: K52.9 Noninfective gastroenteritis and colitis, unspecified (principal)

== ENCOUNTER 2024-12-27 08:49 | Outpatient (REF) | payer BC, SELFPAY ==
[2024-12-27 14:32] LABS: Influenza A PCR NEGATIVE (Negative); Influenza B PCR NEGATIVE (Negative); Resp Syncy Virus RNA Qual PCR NEGATIVE (Negative); SARS COV2 PCR INHOUSE NEGATIVE (Negative)
== END 2024-12-27 08:50 | disposition home or self-care (01) ==
LOC: HO.LAB 08:49
PROVIDERS: PCP Nurse Practitioner Family; Visit Provider Nurse Practitioner Family
DX: R09.89 Other specified symptoms and signs involving the circulatory and respiratory systems (principal); K52.9 Noninfective gastroenteritis and colitis, unspecified
CPT/HCPCS: 0241U

== ENCOUNTER 2025-04-11 07:53 | Outpatient (AMB) | payer BC, SELFPAY ==
--- OUTSIDE RECORDS SUMMARY | 2025-04-11 07:56 | XMS_ITS | Data Portability ---
Author Organization [place] - [facility], Allergy Address [address] [place] [address] Care Team Providers Care Strickler Attendant Name Role Phone AKUA PEPE Primary Care Provider Assessment Encounter Date Assessment Date Assessment LastModified [...] Details Recorded Time Obstructive sleep apnea syndrome 47864253 Active 024 LISA GUZMAN MD [address] [place] [address], [place], [phone], [place] - [facility] 12:00:51 Snoring 78869785 Active LISA GUZMAN MD [address] [place] [address], [place], [phone], [facility] - [facility] 12:00:58 Problem Notes None recorded. Medical Equipment None Reported. Medications Name Sig Start Date Stop Date Status Note LastModified by Organization Details LastModified Time azithromycin 250 mg tablet active Not Available Not Availabl e Not Available Vitals Date Recorded Body height Body mass index (BMI) Body weight Provider Name and Address Organization Details Last Updated DateTime 09/01/2024 182.88 cm 33.1 kg/m2 682594.54 g Camilla Soto [place] - [facility] 09/01/2024 14:02:10 Social History None recorded. Functional Status None recorded. Mental Status None recorded. Family History Nothing Reported. Medical History No medical history recorded. Past Encounters Encounter ID Performer Location Encounter Start Date Encounter Closed Date Diagnosis/Indication Diagnosis SNOMED-CT Code Diagnosis ICD10 Code Diagnosis Note LISA GUZMAN MD [facility] [address] [phone] 09/01/2024 13:12:49 09/01/2024 14:18:57 Obstructive sleep apnea syndrome 35648244 G47.33 Snoring 06846518 R06.83 Health Concerns Section Related Observation LastModified by Organization Detai ls LastModified Time None Recorded Concern Status LastModified by Organization Details LastModified Time None Recorded Advance Directives Directive None Recorded Payers Insurance Date Sequence Insurance Name Policy Number Policy Bills Covered Member ID Bills Member ID Guarantor Name 09/01/2024 1 [place] [id number] 2 Ileana Piña [id number] Ubaldo Winston Notes Date Note Type Note Provider Name and Address Organization Details Recorded Time 09/01/2024 text/html DEBI, snoringobta ined CPAP 02/2024 - snoring is resolved with use 10/2023 [facility] [place] and [place] - not recordedCPAP trial - well tolerated no tonsil infection 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
[2025-04-11 08:05] VITALS: BP 124/78; PULSE 72; O2SAT 97; BMI 33.4
--- NOTE | 2025-04-11 08:05 | MHC.OFFVIS ---
Vital Signs 04/11/25 08:05 Height 6 ft Weight 246 lb BMI 33.4 BP 124/78 Blood Pressure Location Rt brachial Position Sitting Pulse 72 Pulse Source Pulse Oximeter Pulse Oximetry (%) 97 Oxygen Delivery Method Room Air Intake Visit Reasons: 1 year F/U Intake Note: Patient presents 1 year follow up for DEBI, compliance in chart Web Database Developer Required: No Accompanied by: Self / Same As Patient Allergies horse dander Allergy (Verified 04/11/25 08:09) Itching general hayfever Allergy (Severe, Uncoded 12/27/24 10:01) sneezing HPI Comments Details: 35-yr-old male presents for follow-up visit of sleep apnea. Pt denies any significant interval medical history changes. 11/10/2023, HST showed mild DEBI w/ AHI 12.8/hr and O2 eliseo 84%. He continues to regularly use his APAP, which he is tolerating well. He feels more refreshed during the day- requiring less coffee. He did have the ENT consult- they noted slight deviated septum, slight elongated palette, however they did not think pt would benefit from surgical intervention. Encouraged him to continue to use PAP Tx N2 try to lose weight. In his he has had a small weight gain, which he attributes to overall decreased activity as he is at home with his preschool age son, and carrying for another family member. He is hoping to increase physical activity in the fall when his son wonders school. He reports he is cleaning and changing his CPAP supplies routinely. He is using distilled water in his PAP water reservoir. APAP compliance report, 01/04/2025 - 04/03/2025 [facility] Overall usage 97% Usage greater than 4 hours 98% Average usage on days used 7 hours and 0 minutes Serial number [id number] APAP 5-15 cm H2O with EPR set to 2 Maximum PAP pressure 12.3 cm H2O Median leaks 0 L/min Residual AHI 0.9 per hour [facility] Medical History (Updated 12/27/24 @ 10:19 by Shiloh Piedra NP) Gastroenteritis COVID-19 vaccine administered GERD (gastroesophageal reflux disease) History of snoring Foot fracture, right Hx of migraine headaches Esophageal stricture Minimal depression Surgical History Hx of wisdom tooth extraction History of esophagogastroduodenoscopy (EGD) Family History Maternal Grandfather Throat cancer Diabetes Paternal Grandmother Hypertension Father Mental health disorder Social History Household Members: Spouse and Children Household Members Other:: , 1 child- Housing: House Are you a primary behavioral health care coordinator to a significant other at home: No Do you presently have visiting nurse or other home services: No Alcohol intake: current Alcohol intake frequency: does not drink Patient Tobacco Use Status: Never used Tobacco e-Cigarette/Vaping Use: Never Used Advance Directives Date on File: 06/04/21 service: No Current occupational status: employed 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 needs: No Hearing needs: No Vision needs: No Physical Exam Vital Signs: Last Vital Signs Pulse 72 04/11/25 08:05 BP 124/78 04/11/25 08:05 Pulse Ox 97 04/11/25 08:05 Oxygen Delivery Method Room Air 04/11/25 08:05 BMI result Body Mass Index 33.4 Const General: no acute distress Orientation/consciousness: patient oriented x3 Resp Effort & Inspection: normal respiratory effort and able to speak in complete sentences Auscultation: clear to auscultation bilaterally Neuro General: patient oriented x3 Psych Mental Status: mental status grossly normal Speech and movement: Clear speech present Attitude: cooperative Assessment & Plan Assessment & Plan (1) DEBI (obstructive sleep apnea): Comment: Mild degree of sleep apnea. CPAP The AHI was 13/hr and oxygen eliseo was 84%. Code(s): G47.33 - Obstructive sleep apnea (adult) (pediatric) Category: Medical Plan Continue APAP 5-15 cmH2O w/ EPR 2 nightly > 4 hours, as pt continues to have good clinical effect from use.. Clean CPAP machine and supplies routinely. Change CPAP supplies routinely. ENT consult as scheduled. Concur with plans to increase regular physical activity- even a modest amount of weight loss may reduce DEBI symptom burden. Pt to contact us or respiratory company with any questions or concerns. f/u in 12 months or sooner prn. Coding Level of Care Code Est Pt Level 3 (25021) Diagnoses DEBI (obstructive sleep apnea) G47.33
== END 2025-04-11 08:33 | disposition home or self-care (01) ==
LOC: HO.HSMS 07:54
PROVIDERS: PCP Nurse Practitioner Family; Visit Provider Nurse Practitioner Family
DX: G47.33 Obstructive sleep apnea (adult) (pediatric) (principal)
CPT/HCPCS: 99213